=== PATIENT | male | born 1955 | race Caucasian/White ===

== ENCOUNTER 2022-06-25 06:53 | Emergency (ER) | payer OTHER, SELFPAY ==
[2022-06-25] VITALS (11 sets, daily range): BP systolic 106–158; BP diastolic 59–71; PULSE 55–61; RESP 15–22; TEMP 36.6; O2SAT 95–99; BMI 22.4
--- NOTE | 2022-06-25 07:20 | DI.RAD.S_ITS ---
PROCEDURE: XR CHEST 1V INDICATIONS: chest pain TECHNIQUE: One view of the chest was acquired. COMPARISON: Chest x-ray one view, 01/07/2022. FINDINGS: Surgical changes and devices: None. Lungs and pleura: Lungs are clear. No pleural effusions or pneumothorax. Mediastinum: Mediastinal contours appear normal. Heart size is normal. Bones and chest wall: No suspicious bony lesions. Overlying soft tissues appear unremarkable. IMPRESSION: No acute cardiopulmonary disease. Dictated by: Jeannette Khanna M.D. on 06/25/2022 at 8:20 Approved by: Jeannette Khanna M.D. on 06/25/2022 at 8:21
--- NOTE | 2022-06-25 07:26 | ED_ITS ---
HPI - Chest Pain General Chief Complaint: Chest Pain Stated Complaint: possible heartattack Time Seen by Provider: 06/25/22 07:09 Source: patient Mode of arrival: Ambulatory Limitations: no limitations History of Present Illness HPI narrative: Patient is a 66-year-old male. Known history of coronary artery disease. Earlier this year he sustained a heart attack. Was seen at an outside facility. Had a stent placed. Is on medications afterwards. Has followed up with cardiology since then. Yesterday he had an onset of left-sided chest discomfort that he states was different than when he had his heart attack. It lasted for approximately an hour and then he had slight residual discomfort afterwards but this currently asymptomatic. He does not know when the symptoms completely resolved. He did have some discomfort in his right arm. He had left arm discomfort when he had his heart attack. He did have some nausea with the symptoms but no other associated symptoms to include headache or palpitations. Symptoms not made worse with palpation or movement. Review of Systems Review of Systems ROS Unobtainable: All systems reviewed & are unremarkable except as noted in HPI and below Patient History Medical History Coronary artery disease Social History Smoking Status: Former smoker Smoking Status: Former smoker Substance Use Type: marijuana Exam Initial Vital Signs Initial Vital Signs: Vital Signs Temperature 97.9 F 06/25/22 07:00 Pulse Rate 60 06/25/22 07:00 Respiratory Rate 16 06/25/22 07:00 Blood Pressure 158/71 H 06/25/22 07:00 Pulse Oximetry 99 06/25/22 07:00 Oxygen Delivery Method 06/25/22 07:00 Const General: cooperative, comfortable and No ill appearing [facility] Head: normal to inspection and normocephalic Chest Chest: No crepitus and No tenderness Resp Effort & Inspection: normal respiratory effort Auscultation: clear to auscultation bilaterally Cardio Rate: regular rate Rhythm: regular rhythm GI Inspection: normal to inspection Skin General: no rashes or lesions noted Neuro General: patient alert, patient awake, patient oriented x3 and moves all extremities Extrem General: normal to inspection and capillary refill normal Psych Appearance: grossly normal and well kempt Scores HEART Score Heart Score history: Slightly Suspicious Heart Score EKG: Normal Heart Score Age: 45-64 years old Heart Score risk factors: > 3 risk factors or hx of atherosclerotic disease Heart Score troponin: < or = to normal limit Heart Score Total: 3 Course Orders Ordered: ED Orders 06/25/22 07:05 Complete Blood Count AUTO DIFF Stat Comprehensive Metabolic Panel Stat Lipase Stat Magnesium Stat Troponin & CK Cardiac Panel Stat 06/25/22 07:20 XR chest 1V Stat EKG-12 Lead Stat 06/25/22 08:52 Troponin & CK Cardiac Panel Stat Discontinued Medications Acetaminophen (Acetaminophen 325 Mg Tablet) 975 mg PO NOW ONE Stop: 06/25/22 09:45 Last Admin: 06/25/22 09:48 Dose: 975 mg Documented By: ESTEFANY Ondansetron HCl (Ondansetron 4 Mg/2 Ml Inj) 4 mg IV NOW ONE Stop: 06/25/22 09:51 Last Admin: 06/25/22 09:56 Dose: 4 mg Documented By: ESTEFANY Vital Signs Vital signs: Vital Signs - 8 hr 06/25/22 07:00 06/25/22 07:16 Temperature 97.9 F Pulse Rate 60 60 Respiratory Rate 16 15 Blood Pressure 158/71 H Pulse Oximetry 99 96 Oxygen Delivery Method Room Air MDM - Chest Pain Lab Data Attestation: I reviewed the patient's lab results. Result diagrams: 06/25/22 07:05 06/25/22 07:05 Labs: Lab Results 06/25/22 06/25/22 06/25/22 Range/Units 07:05 07:05 07:05 WBC 8.0 (4.5-11.0) X10^3/uL RBC 4.45 L (4.5-5.9) X10^6/uL Hgb 13.5 (13.5-17.5) g/dL Hct 40.0 L (41-53) % MCV 89.9 (80-100) fL MCH 30.3 (26-34) PG MCHC 33.7 (30-36) % RDW 13.7 (11.6-14.8) % Plt Count 185 (150-400) X10^3/uL Neut % (Auto) 75.9 H (50-75) % Lymph % (Auto) 9.4 L (25-40) % [place] % (Auto) 11.9 (3-14) % Eos % (Auto) 1.9 L (2-4) % Baso % (Auto) 0.9 (0-2) % Neut # (Auto) 6100 (3644-2474) /uL Lymph # (Auto) 700 L (5059-6586) /uL [place] # (Auto) 1000 H (0-900) /uL Eos # (Auto) 200 (0-450) /uL Baso # (Auto) 100 (0-100) /uL Sodium 139 (137-145) mmol/L Potassium 3.9 (3.4-5.1) mmol/L Chloride 105 (98-107) mmol/L Carbon Dioxide 26 (22-32) mmol/L BUN 11 (9-20) mg/dL Creatinine 0.86 (0.66-1.25) mg/dL Estimated GFR > 60 (>60) mL/min BUN/Creatinine Ratio 12.8 (6-22) Glucose 107 (80-110) mg/dL Calcium 8.6 (8.4-10.2) mg/dL Magnesium 1.8 (1.6-2.3) mg/dL Total Bilirubin 0.6 (0.2-1.3) mg/dL AST 56 (17-59) IU/L ALT 60 H (<50) IU/L Alkaline Phosphatase 68 (38-126) U/L Total Creatine Kinase 71 (55-170) U/L CK-MB (CK-2) TNP CK-MB (CK-2) Rel Index TNP Troponin I < 0.012 (0.01-0.034) ng/mL Total Protein 7.3 (6.3-8.2) g/dL Albumin 4.3 (3.5-5.0) g/dL Globulin 3.0 (1.7-4.1) g/dL Albumin/Globulin Ratio 1.4 (1.0-2.8) Lipase 239 (23-300) U/L 06/25/22 Range/Units 08:52 WBC (4.5-11.0) X10^3/uL RBC (4.5-5.9) X10^6/uL Hgb (13.5-17.5) g/dL Hct (41-53) % MCV (80-100) fL MCH (26-34) PG MCHC (30-36) % RDW (11.6-14.8) % Plt Count (150-400) X10^3/uL Neut % (Auto) (50-75) % Lymph % (Auto) (25-40) % [place] % (Auto) (3-14) % Eos % (Auto) (2-4) % Baso % (Auto) (0-2) % Neut # (Auto) (5560-7982) /uL Lymph # (Auto) (2210-2854) /uL [place] # (Auto) (0-900) /uL Eos # (Auto) (0-450) /uL Baso # (Auto) (0-100) /uL Sodium (137-145) mmol/L Potassium (3.4-5.1) mmol/L Chloride (98-107) mmol/L Carbon Dioxide (22-32) mmol/L BUN (9-20) mg/dL Creatinine (0.66-1.25) mg/dL Estimated GFR (>60) mL/min BUN/Creatinine Ratio (6-22) Glucose (80-110) mg/dL Calcium (8.4-10.2) mg/dL Magnesium (1.6-2.3) mg/dL Total Bilirubin (0.2-1.3) mg/dL AST (17-59) IU/L ALT (<50) IU/L Alkaline Phosphatase (38-126) U/L Total Creatine Kinase 65 (55-170) U/L CK-MB (CK-2) TNP CK-MB (CK-2) Rel Index TNP Troponin I < 0.012 (0.01-0.034) ng/mL Total Protein (6.3-8.2) g/dL Albumin (3.5-5.0) g/dL Globulin (1.7-4.1) g/dL Albumin/Globulin Ratio (1.0-2.8) Lipase (23-300) U/L Imaging Data Chest x-ray: Radiologist's Impression: [address] [address] XRay Report Signed Patient: Karlo Preston MR#: [id number] : 1955 Acct:[id number] Age/Sex: 66 / M Date of Service: 06/25/22 Loc: ED Accession Number: [id number] ?? Procedure: XR chest 1V Ordering Provider: Hayden Gómez D.O. PROCEDURE:? XR CHEST 1V ? INDICATIONS:? chest pain ? TECHNIQUE:? One view of the chest was acquired.? ? COMPARISON:? Chest x-ray one view, 01/07/2022. ? FINDINGS:? ? Surgical changes and devices:? None.? ? Lungs and pleura:? Lungs are clear.? No pleural effusions or pneumothorax.? ? Mediastinum:? Mediastinal contours appear normal.? Heart size is normal.? ? Bones and chest wall:? No suspicious bony lesions.? Overlying soft tissues appear unremarkable.? ? IMPRESSION:? No acute cardiopulmonary disease. ? ? Dictated by: Jeannette Khanna M.D. on 06/25/2022 at 8:20 ? ? Approved by: Jeannette Khanna M.D. on 06/25/2022 at 8:21?? ECG Data Attestation: I personally reviewed and interpreted this ECG as follows: Interpretation: Sinus rhythm Ventricular rate is 61 side normal axis Normal QRS Incomplete right bundle branch block Normal QTC No ST T wave changes MDM Narrative Medical decision making narrative: Asymptomatic with regard to chest pain since arrival here in the emergency department. He has developed headache since being here. He did not receive any nitroglycerin. His EKG is unremarkable. Has a low risk heart score. Will have him contact his [employer] for follow-up. Also contact his primary doctor for follow-up. He was given strict return precautions. He expressed understanding and agreement. Discharge Plan Departure Patient Disposition: Home Clinical Impression: Atypical chest pain Instructions: DI for Atypical Chest Pain Activity Restrictions/Additional Instructions: I recommend that you continue to take all of your medications as directed and contact your [employer] fire[employer] office today to let them know that you were seen here in the emergency department. Return to the emergency department for any new or worsening symptoms Referrals: Romana,MD Anshu [Primary Care Provider] -
--- NOTE | 2022-06-25 07:26 | PC.NURSE ---
This RNs first interaction with patient. Given warm blankets, VSS, in no apparent distress. Physician at the bedside. Reports 0/10 pain at this time.
[2022-06-25 07:34] LABS: Add Manual Diff / Slide Review NO; Basophils Absolute Auto 100 /uL (0-100); Basophils Percent Auto 0.9 % (0-2); Eosinophils Absolute Auto 200 /uL (0-450); Eosinophils Percent Auto 1.9 % (2-4); Hemoglobin 13.5 g/dL (13.5-17.5); Lymphocytes Absolute Auto 700 /uL (1100-4500); Lymphocytes Percent Auto 9.4 % (25-40); Mean Corpuscular HGB Conc 33.7 % (30-36); Mean Corpuscular Hemoglobin 30.3 PG (26-34); Mean Corpuscular Volume 89.9 fL (80-100); Monocytes Absolute Auto 1000 /uL (0-900); Monocytes Percent Auto 11.9 % (3-14); Neutrophils Absolute Auto 6100 /uL (1500-7000); Neutrophils Percent Auto 75.9 % (50-75); Platelet Count 185 X10^3/uL (150-400); Red Blood Cell Count 4.45 X10^6/uL (4.5-5.9); Red Cell Distribution Width 13.7 % (11.6-14.8)
[2022-06-25 07:39] LABS: Alanine Aminotransferase 60 IU/L (<50); Albumin 4.3 g/dL (3.5-5.0); Albumin Globulin Ratio 1.4 (1.0-2.8); Alkaline Phosphatase 68 U/L (38-126); Aspartate Aminotransferase 56 IU/L (17-59); BUN Creatinine Ratio 12.8 (6-22); Bilirubin Total 0.6 mg/dL (0.2-1.3); Blood Urea Nitrogen 11 mg/dL (9-20); Calcium 8.6 mg/dL (8.4-10.2); Carbon Dioxide 26 mmol/L (22-32); Chloride 105 mmol/L (98-107); Creatine Kinase 71 U/L (55-170); Estimated Glomerular Filt Rate > 60 mL/min (>60); Glucose 107 mg/dL (80-110); HEMOLYSIS < 15 (0-50); Lipase 239 U/L (23-300); Magnesium 1.8 mg/dL (1.6-2.3); Potassium 3.9 mmol/L (3.4-5.1); Sodium 139 mmol/L (137-145); Total Protein 7.3 g/dL (6.3-8.2)
[2022-06-25 07:51] LABS: Troponin I < 0.012 ng/mL (0.01-0.034)
[2022-06-25 09:24] LABS: Creatine Kinase 65 U/L (55-170)
[2022-06-25 09:37] LABS: Troponin I < 0.012 ng/mL (0.01-0.034)
[2022-06-25] MEDS: ACETAMINOPHEN 325 MG TABLET 975 MG PO (09:48)
[2022-06-25] MEDS: ONDANSETRON 4 MG/2 ML INJ IV (09:56)
== END 2022-06-25 10:14 | disposition home or self-care (01) ==
PROVIDERS: Emergency Provider Emergency Medicine
DX: R07.89 Other chest pain (principal); I25.2 Old myocardial infarction
CPT/HCPCS: 36415; 71045; 80053; 82550; 83690; 83735; 84484; 85025; 93005; 96374; 99284; J2405